=== PATIENT | male | born 1960 | race Caucasian/White ===

== ENCOUNTER → 2021-08-11 10:50 | Outpatient (BNVA) | payer OTHER, SELFPAY | PROVIDERS: Family Provider Family Medicine; Visit Provider Nurse Practitioner Family | DX: Z20.822 Contact with and (suspected) exposure to COVID-19 (principal); U07.1 COVID-19 | CPT/HCPCS: 87426 ==

== ENCOUNTER 2021-08-12 12:04 | Outpatient (CLI) | payer OTHER, SELFPAY ==
[2021-08-12 12:20] VITALS: BP 138/81; PULSE 84; RESP 18; TEMP 36.6; O2SAT 98
[2021-08-12 12:48] VITALS: BMI 20.1
[2021-08-12 13:13] VITALS: BP 152/80; PULSE 70; RESP 18; O2SAT 99
[2021-08-12 13:50] VITALS: BP 142/78; PULSE 68; RESP 18; O2SAT 99
== END 2021-08-12 12:05 | disposition home or self-care (01) ==
PROVIDERS: Family Provider Family Medicine; Visit Provider Nurse Practitioner Family
DX: U07.1 COVID-19 (principal)
CPT/HCPCS: 96365

== ENCOUNTER 2023-11-29 07:03 | Outpatient (CLI) | payer OTHER, SELFPAY ==
--- NOTE | 2023-11-29 07:36 | ECG_ITS ---
[facility] Test Date: 2023-11-29 Pat Name: Alex Brown Department: Room: Gender: Male [employer]oon [employer]: : 1960 Requested By: Mitzy Bianchi Order Number: [id number] Francy MD: Ina Roth M.D. Interpretive Statements NAME OF STUDY: LEXISCAN SESTAMIBI STRESS TEST INDICATION: Shortness of Breath, PROCEDURE: At the baseline, the EKG revealed normal sinus rhythm with a normal ST Ts. The baseline heart was 81 bpm with a blood pressue of 171/96 mm of Hg Lexiscan was infused over a period of 20 seconds. A total of 0.4 milligrams of Lexiscan was infused. The stress phase was continued for a total of 5 minutes. Heart rate at the end of the stress phase was 88 bpm with a blood pressure 154/77 mm of Hg. The EKG at the peak infusion revealed no significant changes. Sestamibi was injected 20 seconds after the Lexiscan infusion. Heart rate at the end of the recovery phase was 98 bpm with a blood pressure of 162/79 mm of Hg. CONCLUSION: 1. No significant EKG changes with the LexiScan infusion 2. No LexiScan induced chest pain or cardiac arrhythmia 3. Normal blood pressure and heart rate response 4. Sestamibi/sestamibi perfusion scan pending; see separate report. Electronically Signed On 12-03-2023 19:55:27 CDT by Ina Roth M.D. [email or web address]
--- NOTE | 2023-11-29 07:37 | NMCV_ITS ---
NM ila perf SPECT r/s* [id number] Alex Brown Age: 63 Gender: M : 1960 Exam Date: 11/29/2023 07:58 Ordering Phys: Mitzy Bianchi MD Technologist: VARSHA Todd Exam Location: [facility] Indications: SHORTNESS OF BREATH ON EXERTION STRESS TEST Please see separate stress test report in [facility] for full findings IMAGE PROTOCOL Rest/Stress 1 Lexiscan Day Radiopharmaceutical Dose (mCi) Administration Site Administered by Rest: Tc-99m 10.8 IV VARSHA Cole Sestamibi Stress:Tc-99m 32.7 IV VARSHA Cole Sestamibi Rest: 11/29/2023 60 Discovery 630 Stress: 11/29/2023 30 Discovery 630 0.4mg Lexiscan. Images obtained in supine and prone position. SPECT RESULTS Technical Quality: Excellent Raw Data Analysis: Normal Image Corrections: No attenuation or motion correction applied Summed Stress Score: 4 Summed Rest Score: 6 Summed Difference Score: 0 PERFUSION FINDINGS A moderate area of moderately decreased tracer uptake was noted in the mid and apical inferior wall region, with the supine imaging. No significant reversibility was noted in this area at rest. With the prone imaging, there was fairly uniform myocardial tracer uptake. With a minimally decreased tracer uptake in the apical inferior region FUNCTIONAL RESULTS (calculated via Gated SPECT) Stress Image LV EF (%): 57 Stress EDV (mL):122 TID: 1.05 Stress ESV (mL):53 FUNCTIONAL FINDINGS: Segmental wall motion analysis revealing no gross wall motion abnormalities IMPRESSIONS 1. Myocardial perfusion imaging revealing moderate area of moderately decreased persistent tracer uptake in the inferior wall region inconsistent with the prone imaging, most likely represent a transient artifact. 2. Normal LV ejection fraction of 57% 3. LV wall motion analysis revealing no gross wall motion abnormalities. 4. Normal LV volume. Low probability for coronary ischemia, based on the above findings No similar previous studies are available for comparison Dr Ina Roth MD [facility] (Electronically Signed) Final Date: 30 November 2023 11:06 S
[2023-11-29 07:45] VITALS: BMI 20.1
[2023-11-29] MEDS: regadenoson 0.4 Mg/5 ml Syringe 0.400000000000000022 MG IVP (08:33)
[2023-11-29 08:55] VITALS: BP 154/77; PULSE 88
== END 2023-11-29 07:04 | disposition home or self-care (01) ==
LOC: CDL 07:03
PROVIDERS: PCP Family Medicine; Visit Provider Family Medicine
DX: R06.02 Shortness of breath (principal)
CPT/HCPCS: 36415; 78452; 93017; 96374; A9500; J2785